=== PATIENT | female | born 1995 | race Caucasian/White ===

== ENCOUNTER 2018-09-07 21:29 | Emergency (ER) | payer MEDICAID ==
[2018-09-07 22:28] LABS: PLATELET COUNT, AUTOMATED 220 K/uL (150-450)
[2018-09-07 22:30] VITALS: BP 121/76
[2018-09-07] MEDS ORDERED: CEPHALEXIN MONO 500 MG CAP PO ONE (22:45)
[2018-09-07] MEDS ORDERED: CEPH500T7 PO (23:30)
--- NOTE | 2018-09-07 23:32 | ER Report ---
History and Physical Time Seen By MD: 21:40 Hx. of Stated Complaint: PT REPORTS SHE STARTED BLEEDING IF SHE WAS GOING TO START HER PERIOD. THIS JUST STARTED ABOUT 2O MINUTES AGO. HPI/ROS CHIEF COMPLAINT: Vaginal bleeding HISTORY OF PRESENT ILLNESS: Patient is a G1 at approximate 14 weeks was OB care is in [place]. She recently moved to the area and has not established care here. She takes a vitamin and no other medications. She notes that the Ceftin she started to have some lower abdominal cramping and this evening she noted blood when she wiped after urinating. This happened a second time while here in the emergency department. She thinks it's vaginal but does not know. She has had no blood in her stools. She has had no nausea, vomiting, fevers, chills. She has no family history of bleeding or clotting problems that she knows of. No trauma, falls, injuries. REVIEW OF SYSTEMS: Constitutional: No fever, no chills. Eyes: no blurred vision ENT: No sore throat. Cardiovascular: No chest pain, no palpitations. Respiratory: No cough, no shortness of breath. Gastrointestinal: above Genitourinary: above Musculoskeletal: No back pain. Skin: No rashes. Neurological: No headache. Remainder of the 14 system rev: Yes Allergies: Coded Allergies: No Known Drug Allergies (Unverified , 09/07/18) Home Meds Active Scripts Cephalexin 500 Mg Tab (KEFLEX 500 MG TAB) 500 Mg Tablet, 500 MG PO Q12H for 7 Days, #14 TAB Prov:ANTOINE MAY MD 09/07/18 Hx Substance Use Disorder: No Hx Alcohol Use: No Constitutional Vital Sign - Last 24 Hours 09/07/18 09/07/18 09/07/18 09/07/18 21:37 21:37 21:44 21:59 Temp 97.7 Pulse 82 95 95 Resp 16 B/P (MAP) 153/120 (131) 153/120 Pulse Ox 94 95 95 O2 Delivery Room Air 09/07/18 09/07/18 09/07/18 09/07/18 22:00 22:14 22:29 22:30 Pulse 93 92 B/P (MAP) 139/72 (94) 121/76 (91) Pulse Ox 94 92 09/07/18 09/07/18 09/07/18 09/07/18 22:44 22:49 23:04 23:19 Pulse 95 112 Pulse Ox 93 84 94 85 09/07/18 23:34 Pulse 107 Pulse Ox 95 Physical Exam General Appearance: The patient is alert, has no immediate need for airway protection and no signs of toxicity. Eyes: Pupils equal and round no pallor or injection. ENT, Mouth: Mucous membranes are moist. Respiratory: There are no retractions, lungs are clear to auscultation. Cardiovascular: Regular rate and rhythm. [ ] Gastrointestinal: Abdomen is soft and non tender, no masses, bowel sounds normal. Neurological: alert, moves all ext Skin: Warm and dry, no rashes. Musculoskeletal: Extremities are nontender, nonswollen and have full range of motion. DIFFERENTIAL DIAGNOSIS: After history and physical exam differential diagnosis was considered for placenta previa, abruption, hematuria, or other emergent cause of her symtpoms. Medical Decision Making Data Points Result Diagram: 09/07/182217 Laboratory Hematology Test 09/07/18 21:35 09/07/18 22:18 Urine Color Red Urine Clarity Cloudy Urine pH 5.0 pH (4.8-9.5) Urine Specific [place] 1.027 Urine Protein 100 mg/dL (NEGATIVE) Urine Glucose (UA) Negative mg/dL (NEGATIVE) Urine Ketones Negative mg/dL (NEGATIVE) Urine Blood Large (NEGATIVE) Urine Nitrite Negative (NEGATIVE) Urine Bilirubin Negative (NEGATIVE) Urine Urobilinogen Negative mg/dL (0.2-1.9) Urine Leukocyte Esterase Moderate (NEGATIVE) Urine RBC 556 /HPF (0-2/HPF) Urine WBC 158 /HPF (0-5/HPF) Urine WBC Clumps Few /HPF Urine Squamous Epithelial Cells Many /LPF (</=FEW) Urine Bacteria Few /HPF (NONE-FEW) Urine Mucus Few /HPF (NONE-FEW) Red Blood Count 4.98 M/uL (4.17-5.56) Mean Corpuscular Volume 82.7 fL (80.0-96.0) Mean Corpuscular Hemoglobin 27.2 pg (26.0-33.0) Mean Corpuscular Hemoglobin Concent 32.8 g/dL (32.0-36.0) Red Cell Distribution Width 17.7 % (11.5-14.5) Mean Platelet Volume 8.6 fL (7.2-11.1) Neutrophils (%) (Auto) 67.8 % (39.4-72.5) Lymphocytes (%) (Auto) 25.3 % (17.6-49.6) Monocytes (%) (Auto) 5.8 % (4.1-12.4) Eosinophils (%) (Auto) 0.6 % (0.4-6.7) Basophils (%) (Auto) 0.5 % (0.3-1.4) Nucleated RBC Relative Count (auto) 0.0 /100WBC Neutrophils # (Auto) 5.8 K/uL (2.0-7.4) Lymphocytes # (Auto) 2.2 K/uL (1.3-3.6) Monocytes # (Auto) 0.5 K/uL (0.3-1.0) Eosinophils # (Auto) 0.1 K/uL (0.0-0.5) Basophils # (Auto) 0.0 K/uL (0.0-0.1) Nucleated RBC Absolute Count (auto) 0.00 K/uL Chemistry Test 09/07/18 21:35 09/07/18 22:18 Urine Color Red Urine Clarity Cloudy Urine pH 5.0 pH (4.8-9.5) Urine Specific [place] 1.027 Urine Protein 100 mg/dL (NEGATIVE) Urine Glucose (UA) Negative mg/dL (NEGATIVE) Urine Ketones Negative mg/dL (NEGATIVE) Urine Blood Large (NEGATIVE) Urine Nitrite Negative (NEGATIVE) Urine Bilirubin Negative (NEGATIVE) Urine Urobilinogen Negative mg/dL (0.2-1.9) Urine Leukocyte Esterase Moderate (NEGATIVE) Urine RBC 556 /HPF (0-2/HPF) Urine WBC 158 /HPF (0-5/HPF) Urine WBC Clumps Few /HPF Urine Squamous Epithelial Cells Many /LPF (</=FEW) Urine Bacteria Few /HPF (NONE-FEW) Urine Mucus Few /HPF (NONE-FEW) White Blood Count 8.6 k/uL (4.5-11.0) Red Blood Count 4.98 M/uL (4.17-5.56) Hemoglobin 13.5 g/dL (12.0-16.0) Hematocrit 41.2 % (34.0-47.0) Mean Corpuscular Volume 82.7 fL (80.0-96.0) Mean Corpuscular Hemoglobin 27.2 pg (26.0-33.0) Mean Corpuscular Hemoglobin Concent 32.8 g/dL (32.0-36.0) Red Cell Distribution Width 17.7 % (11.5-14.5) Platelet Count 220 K/uL (150-450) Mean Platelet Volume 8.6 fL (7.2-11.1) Neutrophils (%) (Auto) 67.8 % (39.4-72.5) Lymphocytes (%) (Auto) 25.3 % (17.6-49.6) Monocytes (%) (Auto) 5.8 % (4.1-12.4) Eosinophils (%) (Auto) 0.6 % (0.4-6.7) Basophils (%) (Auto) 0.5 % (0.3-1.4) Nucleated RBC Relative Count (auto) 0.0 /100WBC Neutrophils # (Auto) 5.8 K/uL (2.0-7.4) Lymphocytes # (Auto) 2.2 K/uL (1.3-3.6) Monocytes # (Auto) 0.5 K/uL (0.3-1.0) Eosinophils # (Auto) 0.1 K/uL (0.0-0.5) Basophils # (Auto) 0.0 K/uL (0.0-0.1) Nucleated RBC Absolute Count (auto) 0.00 K/uL Urinalysis Test 09/07/18 21:35 Urine Color Red Urine Clarity Cloudy Urine pH 5.0 pH (4.8-9.5) Urine Specific [place] 1.027 Urine Protein 100 mg/dL (NEGATIVE) Urine Glucose (UA) Negative mg/dL (NEGATIVE) Urine Ketones Negative mg/dL (NEGATIVE) Urine Blood Large (NEGATIVE) Urine Nitrite Negative (NEGATIVE) Urine Bilirubin Negative (NEGATIVE) Urine Urobilinogen Negative mg/dL (0.2-1.9) Urine Leukocyte Esterase Moderate (NEGATIVE) Urine RBC 556 /HPF (0-2/HPF) Urine WBC 158 /HPF (0-5/HPF) Urine WBC Clumps Few /HPF Urine Squamous Epithelial Cells Many /LPF (</=FEW) Urine Bacteria Few /HPF (NONE-FEW) Urine Mucus Few /HPF (NONE-FEW) ED Course/Re-evaluation ED Course IUP with FHR 160's and good movement, UTI with hematuria likely as source of blood, O+. D/c with abx and SRP's. Procedure Results: Ultrasound of the transabdominal was obtained. The results of the study are IUP, FHR 160's. the study was read by me. I viewed the images myself on the PACS system. Decision to Disposition Date: Sep 07, 2018 Decision to Disposition Time: 23:28 Depart Departure Latest Vital Signs Vital Signs Date Time Temp Pulse Resp B/P (MAP) Pulse Ox O2 Delivery O2 Flow Rate FiO2 09/07/18 23:34 107 95 09/07/18 22:30 121/76 (91) 09/07/18 21:37 97.7 16 Room Air Impression: Primary Impression: UTI (urinary tract infection) Condition: Improved Disposition: HOME OR SELF-CARE Referrals: HOLLY WELLS MD 1 Week New Scripts Cephalexin 500 Mg Tab (KEFLEX 500 MG TAB) 500 Mg Tablet 500 MG PO Q12H for 7 Days, #14 TAB Prov: ANTOINE MAY MD 09/07/18 Patient Instructions: Urinary Tract Infection in (ED) Additional Instructions: As we discussed, establish care with an OB provider here for follow up. While the blood may have come from your urine infection, you should be rechecked to make sure you are not having vaginal bleeding or have placenta previa. Please return if feeling worse or for any concerns. Problem Qualifiers Primary Impression: UTI (urinary tract infection) Urinary tract infection type: acute cystitis Hematuria presence: with hematuria Qualified Codes: N30.01 - Acute cystitis with hematuria ANTOINE MAY MD Sep 07, 2018 23:32
== END 2018-09-07 23:47 | disposition home or self-care (01) ==
LOC: ER 21:34
DX: O23.12 Infections of bladder in pregnancy, second trimester (principal); Z3A.14 14 weeks gestation of pregnancy
CPT/HCPCS: 36415; 81001; 85025; 86900; 86901; 99283